=== PATIENT | male | born 1975 | race African-American/Black ===

== ENCOUNTER 2017-02-07 15:56 | Emergency (ER) | payer SELFPAY ==
[~2017-02-07] VITALS: Ht 170.2 cm; Wt 63.5 kg
[~2017-02-07 15:56] MED LIST: PROAIR HFA8.5 GM IH
[2017-02-07 16:31] VITALS: BP 123/79
[2017-02-07] MEDS ORDERED: PROAIR HFA8.5 GM INH (16:33)
[2017-02-07] MEDS ORDERED: PRED20TA PO (16:33)
--- NOTE | 2017-02-07 16:34 | PHYS DOC ---
Past Medical History Past Medical History: Asthma, Other Additional Past Medical Histor: hemorrhoids Past Surgical History: Other Additional Past Surgical Histo: back, hemorrhoids Alcohol Use: Occasionally Drug Use: None Adult General Chief Complaint Chief Complaint: ASTHMA HPI HPI Patient is a 41 year old male presents emergency department stating that he's been having problems with his asthma for the last 3 days. Patient states that he 's been trying to use his albuterol inhaler however it is in 2013. Patient denies any history of smoking. Review of Systems Review of Systems Constitutional: Denies fever or chills [] Eyes: Denies change in visual acuity, redness, or eye pain [] HENT: Denies nasal congestion or sore throat [] Respiratory: Denies cough or complaint of shortness of breath [] Cardiovascular: No additional information not addressed in HPI [] GI: Denies abdominal pain, nausea, vomiting, bloody stools or diarrhea [] : Denies dysuria or hematuria [] Musculoskeletal: Denies back pain or joint pain [] Integument: Denies rash or skin lesions [] Neurologic: Denies headache, focal weakness or sensory changes [] Endocrine: Denies polyuria or polydipsia [] Current Medications Current Medications Current Medications Medications (Trade) Dose Ordered Sig/Melodie Start Time Stop Time Status Last Admin Dose Admin Albuterol Sulfate (Ventolin Neb Soln) 2.5 mg 1X ONCE 02/07/17 17:30 02/07/17 17:31 DC 02/07/17 17:34 2.5 MG Albuterol/ Ipratropium (Duoneb) 3 ml 1X ONCE 02/07/17 17:15 02/07/17 17:16 DC 02/07/17 17:15 3 ML Prednisone (Prednisone) 40 mg 1X ONCE 02/07/17 16:45 02/07/17 16:46 DC 02/07/17 16:37 40 MG Allergies Allergies Allergies Coded Allergies Type Severity Reaction Last Updated Verified No Known Drug Allergies 11/05/15 No Physical Exam Physical Exam Constitutional: Well developed, well nourished, no acute distress, non-toxic appearance. [] HENT: Normocephalic, atraumatic, bilateral external ears normal, oropharynx moist, no oral exudates, nose normal. [] Eyes: PERRLA, EOMI, conjunctiva normal, no discharge. [] Neck: Normal range of motion, no tenderness, supple, no stridor. [] Cardiovascular:Heart rate regular rhythm, no murmur [] Lungs & Thorax: Bilateral breath sounds wheezes noted throughout. Skin: Warm, dry, no erythema, no rash. [] Back: No tenderness Extremities: No tenderness, no cyanosis, no clubbing, ROM intact, no edema. [] Neurologic: Alert and oriented X 3, normal motor function, normal sensory function, no focal deficits noted. [] Psychologic: Affect normal, judgement normal, mood normal. [] Current Patient Data Vital Signs Vital Signs Date Time Temp Pulse Resp B/P (MAP) Pulse Ox O2 Delivery O2 Flow Rate FiO2 02/07/17 17:36 Room Air 02/07/17 16:53 96 02/07/17 16:31 98.3 85 20 98.3 EKG EKG [] Radiology/Procedures Radiology/Procedures [] Course & Med Decision Making Course & Med Decision Making Pertinent Labs and Imaging studies reviewed. (See chart for details) Patient provided with a DuoNeb times 2 here in the emergency department as well as prednisone. He continued to have wheezes noted with Albuterol treatment provided. After the albuterol tx patients breath sounds with minimal wheezes noted. Patient will be sent home with an albuterol inhaler prescription as well as steroids. Patient will be encouraged to use medications as directed. Drink plenty of fluids Tylenol or ibuprofen for pain and discomfort. Follow-up primary care physician in the next 5-7 days. Signs symptoms to return back to emergency room as been provided. [] Dragon Disclaimer Dragon Disclaimer This electronic medical record was generated, in whole or in part, using a voice recognition dictation system. Departure Departure Impression: Primary Impression: Asthma exacerbation Disposition: HOME, SELF-CARE Condition: STABLE Referrals: NO PCP (PCP) Patient Instructions: Asthma, Adult, [id number] Additional Instructions: Medication as prescribed. Drink plenty of fluids. Tylenol or ibuprofen for pain and discomfort. Follow-up to primary care physician next 5-7 days. Return back to emergency prior signs symptoms of become worse. Scripts Albuterol Sulfate (PROAIR HFA INHALER) 8.5 Gm Hfa.aer.ad 1 PUFF INH PRN Q6HRS Y for SHORTNESS OF BREATH, #1 INHALER 0 Refills Prov: PINEDA RENDON APRN 02/07/17 Prednisone (PREDNISONE) 20 Mg Tablet 40 MG PO DAILY for 7 Days, #14 TAB Prov: PINEDA RENDON APRN 02/07/17 PINEDA RENDON APRN Feb 07, 2017 16:34
[2017-02-07] MEDS ORDERED: IPRATRPIUM/ALBUTEROL 0.5/2.5MG 3 ML NEBU. NEB ONE ×2 (16:45→17:15)
[2017-02-07] MEDS ORDERED: predniSONE 20 MG TABLET PO ONE (16:45)
[2017-02-07] MEDS ORDERED: ALBUTEROL SULFATE 2.5 MG/3 ML NEBU. NEB ONE (17:30)
== END 2017-02-07 18:15 | disposition home or self-care (01) ==
LOC: ER 15:56
DX: J45.901 Unspecified asthma with (acute) exacerbation (principal); Z79.899 Other long term (current) drug therapy
CPT/HCPCS: 94250; 94640; 99285; J7512; J7613; J7620

== ENCOUNTER 2017-10-05 15:01 | Emergency (ER) | payer SELFPAY | END 2017-10-05 15:45 | disposition home or self-care (01) | LOC: ER 15:01 | DX: K04.7 Periapical abscess without sinus (principal); R30.0 Dysuria; K02.9 Dental caries, unspecified; J45.909 Unspecified asthma, uncomplicated | CPT/HCPCS: 87491; 87591; 99284 ==

== ENCOUNTER 2017-11-05 16:21 | Inpatient (IN) | payer SELFPAY ==
[2017-11-05] MEDS: IPRATRPIUM/ALBUTEROL 0.5/2.5MG 3 ML NEBU. NEB ×2 (16:59→18:38)
[2017-11-05] MEDS: methylPREDNISolone SOD SUCC PF 125 MG/2 ML VIAL. IV (17:15)
[2017-11-05 18:49] LABS: BASE EXCESS ABG -4 mmol/L (-3-3); HCO3 ABG 20 mmol/L (21-28); PCO2 ABG 36 mmHg (35-46); PH ABG 7.37 (7.35-7.45); PO2 ABG 62 mmHg (75-108); SAT O2 ABG 89 % (92-99)
[2017-11-05 18:51] LABS: FIO2 ABG 21
[2017-11-05 19:36] LABS: BASO # 0.1 x10^3/uL (0.0-0.2); BASO % 1 % (0-3); EOS # 0.1 x10^3/uL (0.0-0.7); EOS % 1 % (0-3); HEMATOCRIT 45.2 % (39.0-53.0); HEMOGLOBIN 15.7 g/dL (13.0-17.5); LYMPH # 0.7 x10^3/uL (1.0-4.8); LYMPH % 7 % (24-48); MEAN CORPUSCULAR HEMOGLOBIN 33 pg (25-35); MEAN CORPUSCULAR HGB CONC 35 g/dL (31-37); MEAN CORPUSCULAR VOLUME 95 fL (79-100); MONO # 0.1 x10^3/uL (0.0-1.1); MONO % 1 % (0-9); NEUT # 8.5 x10^3uL (1.8-7.7); NEUT % 91 % (31-73); PLATELET COUNT 263 x10^3/uL (140-400); RED BLOOD COUNT 4.74 x10^6/uL (4.30-5.70); RED CELL DISTRIBUTION WIDTH 14.1 % (11.5-14.5); WHITE BLOOD COUNT 9.4 x10^3/uL (4.0-11.0)
[2017-11-05 19:37] LABS: ADD MAN DIFF? YES
[2017-11-05 19:48] LABS: ANION GAP 17 (6-14); BLOOD UREA NITROGEN 16 mg/dL (8-26); BUN/CREATININE RATIO 12 (6-20); CARBON DIOXIDE 21 mmol/L (21-32); CHLORIDE 100 mmol/L (98-107); CREATININE 1.3 mg/dL (0.7-1.3); GLUCOSE 61 mg/dL (70-99); POTASSIUM 4.2 mmol/L (3.5-5.1); SODIUM 138 mmol/L (136-145)
[2017-11-05 19:56] LABS: TROPONINI < 0.017 ng/mL (0.000-0.055)
[2017-11-05 19:56] LABS: ALBUMIN 4.3 g/dL (3.4-5.0); ALBUMIN/GLOBULIN RATIO 1.1 (1.0-1.7); ALK PHOS 67 U/L (46-116); ALT (SGPT) 29 U/L (16-63); AST (SGOT) 28 U/L (15-37); TOTAL BILIRUBIN 0.5 mg/dL (0.2-1.0); TOTAL PROTEIN 8.1 g/dL (6.4-8.2)
[2017-11-05 20:02] LABS: CKMB MASS 2.6 ng/mL (0.0-3.6); CREATINE KINASE 267 U/L (39-308)
[2017-11-05] MEDS: AZITHROMYCIN 250 MG TABLET. PO (20:35)
[2017-11-05 20:47] LABS: % ATYL 2 % (0-0); % BANDS 2 % (0-9); % EOS 1 % (0-5); % LYMPHS 7 % (24-48); % SEGS 88 % (35-66); PLT ESTIMATE ADEQUATE (ADEQUATE)
[2017-11-05] MEDS ORDERED: ONDANSETRON PF 4 MG/2 ML VIAL. IV (21:15)
[2017-11-05] MEDS: MORPHINE SULFATE 4 MG/ML DISP.SYRIN. IV (22:18)
[2017-11-05] MEDS ORDERED: NICOTINE 21MG PATCH. TD (23:00)
[2017-11-05] MEDS ORDERED: MORPHINE SULFATE 4 MG/ML DISP.SYRIN. IV (23:00)
[2017-11-06] MEDS: ALBUTEROL SULFATE 2.5 MG/3 ML NEBU. NEB (01:07)
[2017-11-06 03:08] LABS: ADD MAN DIFF? NO
[2017-11-06 04:10] LABS: TROPONINI < 0.017 ng/mL (0.000-0.055)
[2017-11-06 04:11] LABS: TROPONINI < 0.017 ng/mL (0.000-0.055)
[2017-11-06 04:26] LABS: BASO % 0 % (0-3); EOS % 0 % (0-3); HEMATOCRIT 41.7 % (39.0-53.0); HEMOGLOBIN 14.2 g/dL (13.0-17.5); LYMPH # 0.5 x10^3/uL (1.0-4.8); LYMPH % 11 % (24-48); MEAN CORPUSCULAR HEMOGLOBIN 33 pg (25-35); MEAN CORPUSCULAR HGB CONC 34 g/dL (31-37); MEAN CORPUSCULAR VOLUME 97 fL (79-100); MONO % 1 % (0-9); NEUT # 4.3 x10^3uL (1.8-7.7); NEUT % 88 % (31-73); PLATELET COUNT 245 x10^3/uL (140-400); RED BLOOD COUNT 4.32 x10^6/uL (4.30-5.70); RED CELL DISTRIBUTION WIDTH 13.8 % (11.5-14.5); WHITE BLOOD COUNT 4.8 x10^3/uL (4.0-11.0)
[2017-11-06 04:30] LABS: ALBUMIN 3.6 g/dL (3.4-5.0); ALK PHOS 58 U/L (46-116); ALT (SGPT) 29 U/L (16-63); ANION GAP 12 (6-14); AST (SGOT) 23 U/L (15-37); BLOOD UREA NITROGEN 18 mg/dL (8-26); BUN/CREATININE RATIO 13 (6-20); CALCIUM 8.5 mg/dL (8.5-10.1); CARBON DIOXIDE 23 mmol/L (21-32); CHLORIDE 99 mmol/L (98-107); CREATININE 1.4 mg/dL (0.7-1.3); GFR 67.9; GLUCOSE 299 mg/dL (70-99); POTASSIUM 4.3 mmol/L (3.5-5.1); SODIUM 134 mmol/L (136-145); TOTAL BILIRUBIN 0.5 mg/dL (0.2-1.0); TOTAL PROTEIN 7.3 g/dL (6.4-8.2)
[2017-11-06] MEDS: IPRATRPIUM/ALBUTEROL 0.5/2.5MG 3 ML NEBU. NEB ×2 (07:28→11:17)
[2017-11-06] MEDS ORDERED: NON FORMULARY ITEM (Albuterol Sulfate (Proair Hfa Inhaler) 2 PUFF) IH (12:00)
[2017-11-06] MEDS ORDERED: NON FORMULARY ITEM (Albuterol Sulfate (Proair Hfa Inhaler) 1 PUFF) INH (12:00)
[2017-11-06] MEDS ORDERED: ALBUTEROL SULFATE 2.5 MG/3 ML NEBU. NEB (12:15)
== END 2017-11-06 13:30 | disposition home or self-care (01) | DRG 203 ==
LOC: ER 16:21 → 5 SOUTH 21:15
DX: J45.901 Unspecified asthma with (acute) exacerbation (principal); F17.210 Nicotine dependence, cigarettes, uncomplicated; Z82.5 Family history of asthma and other chronic lower respiratory diseases
CPT/HCPCS: 36415; 36600; 71045; 80053; 82553; 82805; 84484; 85007; 85025; 94375; 94640; 94760; 96374; 99285; 99285-25; J2270; J2930; J7613; J7620; Q0144

== ENCOUNTER 2017-12-17 22:53 | Emergency (ER) | payer SELFPAY ==
[2017-12-17 23:48] LABS: ADD MAN DIFF? NO
[2017-12-17 23:49] LABS: BASO # 0.1 x10^3/uL (0.0-0.2); BASO % 1 % (0-3); EOS # 0.6 x10^3/uL (0.0-0.7); EOS % 7 % (0-3); HEMATOCRIT 35.7 % (39.0-53.0); HEMOGLOBIN 12.5 g/dL (13.0-17.5); LYMPH # 1.8 x10^3/uL (1.0-4.8); LYMPH % 23 % (24-48); MEAN CORPUSCULAR HEMOGLOBIN 33 pg (25-35); MEAN CORPUSCULAR HGB CONC 35 g/dL (31-37); MEAN CORPUSCULAR VOLUME 95 fL (79-100); MONO # 0.6 x10^3/uL (0.0-1.1); MONO % 8 % (0-9); NEUT % 61 % (31-73); PLATELET COUNT 297 x10^3/uL (140-400); RED BLOOD COUNT 3.77 x10^6/uL (4.30-5.70); RED CELL DISTRIBUTION WIDTH 13.7 % (11.5-14.5); WHITE BLOOD COUNT 8.1 x10^3/uL (4.0-11.0)
[2017-12-17] MEDS: methylPREDNISolone SOD SUCC PF 125 MG/2 ML VIAL. IV (23:55)
[2017-12-18 00:01] LABS: ANION GAP 10 (6-14); BLOOD UREA NITROGEN 18 mg/dL (8-26); BUN/CREATININE RATIO 16 (6-20); CALCIUM 8.8 mg/dL (8.5-10.1); CARBON DIOXIDE 27 mmol/L (21-32); CHLORIDE 106 mmol/L (98-107); CREATININE 1.1 mg/dL (0.7-1.3); GFR 74.1; GLUCOSE 89 mg/dL (70-99); POTASSIUM 3.5 mmol/L (3.5-5.1); SODIUM 143 mmol/L (136-145)
[2017-12-18] MEDS: IPRATRPIUM/ALBUTEROL 0.5/2.5MG 3 ML NEBU. NEB ×2 (00:02→00:06)
[2017-12-18 00:14] LABS: ALBUMIN 2.8 g/dL (3.4-5.0); ALBUMIN/GLOBULIN RATIO 0.8 (1.0-1.7); ALK PHOS 64 U/L (46-116); ALT (SGPT) 29 U/L (16-63); AST (SGOT) 27 U/L (15-37); TOTAL BILIRUBIN 0.2 mg/dL (0.2-1.0); TOTAL PROTEIN 6.5 g/dL (6.4-8.2)
== END 2017-12-18 01:05 | disposition home or self-care (01) ==
LOC: ER 22:53
DX: J45.901 Unspecified asthma with (acute) exacerbation (principal); J18.9 Pneumonia, unspecified organism
CPT/HCPCS: 36415; 71045; 80053; 85025; 94640; 96365; 96375; J0690; J2930; J7620

== ENCOUNTER 2018-01-10 05:44 | Emergency (ER) | payer SELFPAY ==
[2018-01-10] MEDS: IPRATRPIUM/ALBUTEROL 0.5/2.5MG 3 ML NEBU. NEB ×2 (06:00→06:37)
[2018-01-10] MEDS: predniSONE 10 MG TABLET PO (06:15)
[2018-01-10] MEDS ORDERED: IPRATRPIUM/ALBUTEROL 0.5/2.5MG 3 ML NEBU. NEB (06:45)
== END 2018-01-10 06:53 | disposition home or self-care (01) ==
LOC: ER 05:44
DX: J45.901 Unspecified asthma with (acute) exacerbation (principal); F10.10 Alcohol abuse, uncomplicated
CPT/HCPCS: 94640; 99284-25; J7512; J7620

== ENCOUNTER 2018-11-07 10:19 | Emergency (ER) | payer SELFPAY ==
[~2018-11-07] VITALS: Ht 167.6 cm; Wt 63.5 kg
[~2018-11-07 10:19] MED LIST changes: +ALBU2.5V5 NEB; +ALBU2.5V8 IH; +ALBU2.5V8 INH; +AZIT500T PO; +CEFI200S PO; +DOXY100T PO; +FLUT12AE IH; +PENI500T PO; +PRED-220 PO; +PRED20TA PO; +PRED50TA PO; -PROAIR HFA8.5 GM IH
[2018-11-07 10:47] VITALS: BP 131/80
[2018-11-07] MEDS ORDERED: HYDROcodone/APAP 5/325MG 1 TAB TABLET PO ONE (11:00)
--- NOTE | 2018-11-07 11:29 | RAD ---
Three-view study lumbar spine Clinical indications: Low back pain. No known injury. FINDINGS: The transverse processes are intact. No compression fracture or discitis or lytic process or anterolisthesis is evident. Mild degenerative endplate spurring and disc space narrowing is seen at L4-5. IMPRESSION: Degenerative lumbar spondylosis at L4-5. No acute compression fracture. Electronically signed by: Stan Raines MD (11/07/2018 11:27 AM) [id number]
[2018-11-07 12:04] LABS: BILIRUBIN,URINE NEGATIVE (NEG); CLARITY,URINE CLEAR; COLOR,URINE YELLOW; NITRITE,URINE NEGATIVE (NEG); PH,URINE 5.5; PROTEIN,URINE NEGATIVE (NEG-TRACE); UROBILINOGEN,URINE 0.2 mg/dL (0.2 mg/dL)
--- NOTE | 2018-11-07 12:05 | PHYS DOC ---
Past Medical History Past Medical History: Asthma, Other Additional Past Medical Histor: hemorrhoids (ROBERT LAZARO Nelda POOL) Past Surgical History: Other Additional Past Surgical Histo: back, hemorrhoids (ROBERT LAZARO Nelda POOL) Alcohol Use: Heavy Drug Use: Marijuana (ROBERT LAZARO Nelda POOL) Adult General Chief Complaint Chief Complaint: LOWER BACK PAIN OR INJURY HPI HPI Patient is a 43 year old male who presents with low back pain that started when he woke up this morning. The patient states that he thought that he might have slept funny. He denies spontaneous loss of bowel or bladder, saddle numbness or foot drop. The patient does do a physical job but does not remember having a specific injury. (ROBERT LAZARO Nelda POOL) Review of Systems Review of Systems Constitutional: Denies fever or chills [] Eyes: Denies change in visual acuity, redness, or eye pain [] HENT: Denies nasal congestion or sore throat [] Respiratory: Denies cough or shortness of breath [] Cardiovascular: No additional information not addressed in HPI [] GI: Denies abdominal pain, nausea, vomiting, bloody stools or diarrhea [] : Denies dysuria or hematuria [] Musculoskeletal: See history of present illness Integument: Denies rash or skin lesions [] Neurologic: Denies headache, focal weakness or sensory changes [] Endocrine: Denies polyuria or polydipsia [] All other systems were reviewed and found to be within normal limits, except as documented in this note. (LAINE LAZAROJAYASHREE Lutz APRN) Current Medications Current Medications Current Medications Medications (Trade) Dose Ordered Sig/Melodie Start Time Stop Time Status Last Admin Dose Admin Acetaminophen/ Hydrocodone Bitart (Lortab 5/325) 1 tab 1X ONCE 11/07/18 11:00 11/07/18 11:03 DC 11/07/18 11:14 1 TAB (JUAN R HANSEN MD) Allergies Allergies Allergies Coded Allergies Type Severity Reaction Last Updated Verified No Known Drug Allergies 11/05/15 No (JUAN R HANSEN MD) Physical Exam Physical Exam Constitutional: Well developed, well nourished, no acute distress, non-toxic appearance. [] Neck: Normal range of motion, no tenderness, supple, no stridor. [] Cardiovascular:Heart rate regular rhythm, no murmur [] Lungs & Thorax: Bilateral breath sounds clear to auscultation [] Abdomen: Bowel sounds normal, soft, no tenderness, no masses, no pulsatile masses. [] Skin: Warm, dry, no erythema, no rash. [] Back: tenderness to lumbar spine with no gross deformity or step-offs noted, no CVA tenderness. [] Extremities: No tenderness, no cyanosis, no clubbing, ROM intact, no edema. [] Neurologic: Alert and oriented X 3, normal motor function, normal sensory function, no focal deficits noted. [] Psychologic: Affect normal, judgement normal, mood normal. [] (ROBERT LAZARO APRN) Current Patient Data Vital Signs Vital Signs Date Time Temp Pulse Resp B/P (MAP) Pulse Ox O2 Delivery O2 Flow Rate FiO2 11/07/18 10:47 98.2 83 18 131/80 (97) 99 Room Air 98.2 (JUAN R HANSEN MD) Lab Values Laboratory Tests Test 11/07/18 11:55 Urine Collection Type Unknown Urine Color Yellow Urine Clarity Clear Urine pH 5.5 Urine Specific [place] <=1.005 Urine Protein Negative mg/dL (NEG-TRACE) Urine Glucose (UA) Negative mg/dL (NEG) Urine Ketones (Stick) Negative mg/dL (NEG) Urine Blood Negative (NEG) Urine Nitrite Negative (NEG) Urine Bilirubin Negative (NEG) Urine Urobilinogen Dipstick 0.2 mg/dL (0.2 mg/dL) Urine Leukocyte Esterase Negative (NEG) Urine RBC 0 /HPF (0-2) Urine WBC 0 /HPF (0-4) Urine Squamous Epithelial Cells Few /LPF Urine Bacteria 0 /HPF (0-FEW) (JUAN R HANSEN MD) Lab Values Laboratory Tests Test 11/07/18 11:55 Urine Collection Type Unknown Urine Color Yellow Urine Clarity Clear Urine pH 5.5 Urine Specific [place] <=1.005 Urine Protein Negative mg/dL (NEG-TRACE) Urine Glucose (UA) Negative mg/dL (NEG) Urine Ketones (Stick) Negative mg/dL (NEG) Urine Blood Negative (NEG) Urine Nitrite Negative (NEG) Urine Bilirubin Negative (NEG) Urine Urobilinogen Dipstick 0.2 mg/dL (0.2 mg/dL) Urine Leukocyte Esterase Negative (NEG) Urine RBC 0 /HPF (0-2) Urine WBC 0 /HPF (0-4) Urine Squamous Epithelial Cells Few /LPF Urine Bacteria 0 /HPF (0-FEW) (ROBERT LAZARO APRN) EKG EKG [] (ROBERT LAZARO APRN) Radiology/Procedures Radiology/Procedures []PATIENT: DARLEEN SILVA LACCOUNT: [id number]#: [id number] : 1975 LOCATION: ER AGE: 43 SEX: M EXAM STATUS: REG ER ORD. PHYSICIAN: ROBERT LAZARO APRN REASON: increasing back pain PROCEDURE: LUMBAR SPINE 2-3V Three-view study lumbar spine Clinical indications: Low back pain. No known injury. FINDINGS: The transverse processes are intact. No compression fracture or discitis or lytic process or anterolisthesis is evident. Mild degenerative endplate spurring and disc space narrowing is seen at L4-5. IMPRESSION: Degenerative lumbar spondylosis at L4-5. No acute compression fracture. Electronically signed by: Cristhian Raines MD (11/07/2018 11:27 AM) [id number] DICTATED and SIGNED BY: CRISTHIAN RAINES MD DATE: 11/07/18 1127 (ROBERT LAZARO APRN) Course & Med Decision Making Course & Med Decision Making Pertinent Labs and Imaging studies reviewed. (See chart for details) []The patient is negative for a urinary tract infection. (ROBERT LAZARO APRN) Course & Med Decision Making Staff Physician Addendum: I was working in the ER during the course of this patient's visit. I was available for consultation as needed, but I was not directly involved in the c are of this patient. (JUAN R HANSEN MD) Dragon Disclaimer Dragon Disclaimer This electronic medical record was generated, in whole or in part, using a voice recognition dictation system. (ROBERT LAZARO APRN) Departure Departure Impression: Primary Impression: Degenerative spondylolisthesis Disposition: HOME, SELF-CARE Condition: STABLE Referrals: NO PCP (PCP) Patient Instructions: Spondylolysis with [facility] Additional Instructions: Take the medication as directed. Follow-up with your primary care provider in one week for recheck if not improving. You may be referred to neurosurgery if your pain does not improve. Scripts Meloxicam (MOBIC) 7.5 Mg Tablet 1 TAB PO DAILY for back pain, #30 TAB 1 Refill Prov: ROBERT LAZARO APRN 11/07/18 ROBERT LAZARO APRN Nov 07, 2018 12:05 JUAN R HANSEN MD November 09, 2018 00:06
[2018-11-07 12:11] LABS: BACTERIA,URINE 0 /HPF (0-FEW); RBC,URINE 0 /HPF (0-2); SQUAMOUS EPITHELIAL CELL,UR FEW /LPF; WBC,URINE 0 /HPF (0-4)
[2018-11-07] MEDS ORDERED: MELO7.5T5 PO (12:23)
== END 2018-11-07 12:43 | disposition home or self-care (01) ==
LOC: ER 10:19
DX: M43.16 Spondylolisthesis, lumbar region (principal); J45.909 Unspecified asthma, uncomplicated; F10.20 Alcohol dependence, uncomplicated; Y90.9 Presence of alcohol in blood, level not specified
CPT/HCPCS: 72100; 81001; 99285

== ENCOUNTER 2018-12-22 05:04 | Emergency (ER) | payer OTHER ==
[~2018-12-22] VITALS: Ht 170.2 cm; Wt 63.5 kg
[~2018-12-22 05:04] MED LIST changes: +MELO7.5T5 PO
[2018-12-22 05:15] VITALS: BP 140/91
[2018-12-22] MEDS ORDERED: PRED50TA PO (05:21)
[2018-12-22] MEDS ORDERED: ALBU2.5V8 INH (05:21)
[2018-12-22] MEDS ORDERED: IPRATRPIUM/ALBUTEROL 0.5/2.5MG 3 ML NEBU. NEB ONE (05:30)
[2018-12-22] MEDS ORDERED: predniSONE 10 MG TABLET PO ONE (05:30)
--- NOTE | 2018-12-22 05:52 | PHYS DOC ---
Past Medical History Past Medical History: Asthma, Other Additional Past Medical Histor: hemorrhoids Past Surgical History: Other Additional Past Surgical Histo: back, hemorrhoids Alcohol Use: Heavy Drug Use: Marijuana Adult General Chief Complaint Chief Complaint: ASTHMA HPI HPI Patient is a 43 year old male presenting with chief complaint of shortness of breath. History of asthma he feels like his asthma is kicking in he ran out of his albuterol inhaler he thinks the weather leading to his symptoms he has not had a fever. He has a dry cough he says that he just wanted to come in sooner so that he wouldn't end up intubated like he was a few years back. Review of Systems Review of Systems Constitutional: Denies fever or chills [] Eyes: Denies change in visual acuity, redness, or eye pain [] Cardiovascular: No additional information not addressed in HPI [] GI: Denies abdominal pain, nausea, vomiting, bloody stools or diarrhea [] : Denies dysuria or hematuria [] Musculoskeletal: Denies back pain or joint pain [] Integument: Denies rash or skin lesions [] Neurologic: Denies headache, focal weakness or sensory changes [] Endocrine: Denies polyuria or polydipsia [] All other systems were reviewed and found to be within normal limits, except as documented in this note. Current Medications Current Medications Current Medications Medications (Trade) Dose Ordered Sig/Melodie Start Time Stop Time Status Last Admin Dose Admin Albuterol/ Ipratropium (Duoneb) 3 ml 1X ONCE 12/22/18 05:30 12/22/18 05:31 DC Prednisone (Prednisone) 50 mg 1X ONCE 12/22/18 05:30 12/22/18 05:31 DC 12/22/18 05:33 50 MG Allergies Allergies Allergies Coded Allergies Type Severity Reaction Last Updated Verified No Known Drug Allergies 11/05/15 No Physical Exam Physical Exam Constitutional: Well developed, well nourished, no acute distress, non-toxic appearance. [] HENT: Normocephalic, atraumatic, bilateral external ears normal, oropharynx moist, no oral exudates, nose normal. [] Eyes: PERRLA, EOMI, conjunctiva normal, no discharge. [] Neck: Normal range of motion, no tenderness, supple, no stridor. [] Cardiovascular:Heart rate regular rhythm, no murmur [] Lungs & Thorax: Faint wheezing bilaterally speaking full sentences without difficulty Abdomen: Bowel sounds normal, soft, no tenderness, no masses, no pulsatile masses. [] Skin: Warm, dry, no erythema, no rash. [] Back: No tenderness, no CVA tenderness. [] Extremities: No tenderness, no cyanosis, no clubbing, ROM intact, no edema. [] Neurologic: Alert and oriented X 3, normal motor function, normal sensory function, no focal deficits noted. [] Psychologic: Affect normal, judgement normal, mood normal. [] Current Patient Data Vital Signs Vital Signs Date Time Temp Pulse Resp B/P (MAP) Pulse Ox O2 Delivery O2 Flow Rate FiO2 12/22/18 05:15 98.0 78 22 140/91 (107) 95 Room Air 98.0 EKG EKG [] Radiology/Procedures Radiology/Procedures [] Impressions: Chest x-ray interpreted by me was negative acute Course & Med Decision Making Course & Med Decision Making Pertinent Labs and Imaging studies reviewed. (See chart for details) []This is a 43-year-old male with known asthma who has had severe asthma in the past status post intubation he tells me present with mild asthma exacerbation sat was 95 on room air patient had minimal wheezing we gave DuoNeb we did x-ray looked okay we will send home with albuterol and prednisone. Dragon Disclaimer Dragsal Disclaimer This electronic medical record was generated, in whole or in part, using a voice recognition dictation system. Departure Departure Impression: Primary Impression: Asthma exacerbation Disposition: HOME, SELF-CARE Condition: STABLE Patient Instructions: Asthma, Acute Bronchospasm Scripts Albuterol Sulfate (PROAIR HFA INHALER) 8.5 Gm Hfa.aer.ad 1 PUFF INH PRN Q6HRS PRN for SHORTNESS OF BREATH, #1 INHALER 0 Refills Prov: JUAN R HANSEN MD 12/22/18 Prednisone (PREDNISONE) 50 Mg Tablet 1 TAB PO DAILY, #5 TAB Prov: JUAN R HANSEN MD 12/22/18 JUAN R HANSEN MD Dec 22, 2018 05:52
--- NOTE | 2018-12-22 06:00 | RAD ---
Chest AP portable at 0501: Reason for examination: Cough. Comparison is made to previous study dated 11/05/2017. The heart size is normal. Mediastinum is unremarkable. Lung aponte appear to be hyperaerated but show no infiltrates or pleural effusions.. No acute bony abnormalities are seen. Impression: Lung aponte appear hyperaerated but show no infiltrates or pleural effusions. Electronically signed by: Mellisa Hines MD (12/22/2018 5:57 AM) [id number]
== END 2018-12-22 06:20 | disposition home or self-care (01) ==
LOC: ER 05:04
DX: J45.901 Unspecified asthma with (acute) exacerbation (principal); F10.20 Alcohol dependence, uncomplicated; Y90.9 Presence of alcohol in blood, level not specified
CPT/HCPCS: 71045; 94640; 99283; J7512; J7620

== ENCOUNTER 2021-01-16 13:54 | Emergency (ER) | payer SELFPAY ==
[~2021-01-16] VITALS: Ht 170.2 cm; Wt 59.0 kg
--- NOTE | 2021-01-16 14:05 | PHYS DOC ---
Past Medical History Past Medical History: Asthma, Other Additional Past Medical Histor: hemorrhoids Past Surgical History: Other Additional Past Surgical Histo: back, hemorrhoids Smoking Status: Current Every Day Smoker Alcohol Use: Heavy Drug Use: Marijuana General Adult EDM: Chief Complaint: HAND PROBLEM HPI: HPI: Patient is a 45 year old [f__sex] who presents with [] Review of Systems: Review of Systems: Fourteen body systems of review of systems have been reviewed. See HPI for p ertinent positives and negative responses, other beltran all other systems are negative, non-pertinent or non-contributory Heart Score: Risk Factors: Risk Factors: DM, Current or recent (<one month) smoker, HTN, HLP, family history of CAD, obesity. Risk Scores: Score 0 - 3: 2.5% MACE over next 6 weeks - Discharge Home Score 4 - 6: 20.3% MACE over next 6 weeks - Admit for Clinical Observation Score 7 - 10: 72.7% MACE over next 6 weeks - Early Invasive Strategies Allergies: Allergies: Allergies Coded Allergies Type Severity Reaction Last Updated Verified No Known Drug Allergies 11/05/15 No Physical Exam: PE: Constitutional: Well developed, well nourished, no acute distress, non-toxic appearance. HENT: Normocephalic, atraumatic, bilateral external ears normal, oropharynx moist, no oral exudates, nose normal. Eyes: PERRLA, EOMI, conjunctiva normal, no discharge. Neck: Normal range of motion, no tenderness, supple, no stridor. Cardiovascular: Heart rate regular, sinus rhythm, no murmurs rubs or gallops Lungs & Thorax: Bilateral breath sounds clear to auscultation Abdomen: Bowel sounds normal, soft, no tenderness, no masses, no pulsatile masses. Nonsurgical abdomen, no peritoneal signs Skin: Warm, dry, no erythema, no rash. Back: No tenderness, no CVA tenderness. Extremities: No tenderness, no cyanosis, no clubbing, ROM intact, no edema. Neurologic: Alert and oriented X 3, grossly normal motor & sensory function, no focal deficits noted. Psychologic: Affect normal, judgement normal, mood normal. EKG: EKG: [] Radiology/Procedures: Radiology/Procedures: [] Course & Med Decision Making: Course & Med Decision Making Pertinent Labs and Imaging studies reviewed. (See chart for details) [] Dragon Disclaimer: Dragon Disclaimer: This electronic medical record was generated, in whole or in part, using a voice recognition dictation system. Departure Departure Referrals: NO PCP (PCP) MITUL CHATTERJEE DO Jan 16, 2021 14:05
[2021-01-16 14:31] VITALS: BP 122/77
--- NOTE | 2021-01-16 14:46 | PHYS DOC ---
Past Medical History Past Medical History: Asthma, Other Additional Past Medical Histor: hemorrhoids (AURA HAN FABRIC DESIGNER) Past Surgical History: No Surgical History Additional Past Surgical Histo: back, hemorrhoids (AURA HAN FABRIC DESIGNER) Smoking Status: Current Every Day Smoker Alcohol Use: Heavy Drug Use: Marijuana (AURA HAN FABRIC DESIGNER) General Adult EDM: Chief Complaint: HAND PROBLEM HPI: HPI: Patient is a 45 year old female who presents to the ED today to be evaluated for left hand fracture that he sustained 5 weeks ago. Patient states he was seen at [facility], he states he was told because he does not live in [place] he needs [place] Medicaid to get his hand fixed. He presents today requesting that hand to be surgically fixed right now. (AURA HAN APRN) Review of Systems: Review of Systems: Constitutional: Denies fever or chills. [] Musculoskeletal: Reports left hand injury Integument: Denies rash. [] Neurologic: Denies headache, focal weakness or sensory changes. [] Psychiatric: Denies depression or anxiety. [] (AURA HAN FABRIC DESIGNER) Heart Score: C/O Chest Pain: N/A Risk Factors: Risk Factors: DM, Current or recent (<one month) smoker, HTN, HLP, family history of CAD, obesity. Risk Scores: Score 0 - 3: 2.5% MACE over next 6 weeks - Discharge Home Score 4 - 6: 20.3% MACE over next 6 weeks - Admit for Clinical Observation Score 7 - 10: 72.7% MACE over next 6 weeks - Early Invasive Strategies (AURA HAN FABRIC DESIGNER) Allergies: Allergies: Allergies Coded Allergies Type Severity Reaction Last Updated Verified No Known Drug Allergies 11/05/15 No (AURA HAN FABRIC DESIGNER) Physical Exam: PE: Constitutional: Well developed, well nourished, no acute distress, non-toxic appearance. [] Skin: Warm, dry, no erythema, no rash. [] Back: No tenderness, no CVA tenderness. [] Extremities: Left hand is in a thumb spica type splint. There is edema to the left fingers. Range of motion is intact. Cap refill less than 2 seconds. Adequate radial, medial, ulnar sensation to the left fingers. Neurologic: Alert and oriented X 3, normal motor function, normal sensory function, no focal deficits noted. [] Psychologic: Affect normal, judgement normal, mood normal. [] (AURA HAN FABRIC DESIGNER) Current Patient Data: Vital Signs: Vital Signs Date Time Temp Pulse Resp B/P (MAP) Pulse Ox O2 Delivery O2 Flow Rate FiO2 01/16/21 14:31 98.2 92 16 122/77 95 Room Air 98.2 (AURA HAN FABRIC DESIGNER) EKG: EKG: [] (AURA HAN FABRIC DESIGNER) Radiology/Procedures: Radiology/Procedures: [] (AURA HAN FABRIC DESIGNER) Course & Med Decision Making: Course & Med Decision Making Pertinent Labs and Imaging studies reviewed. (See chart for details) This is a 45-year-old male patient who presents to the ED today requesting his hand to be fixed. Patient states he had had fracture 5 weeks ago. Informed patient this is an injury that occurred 5 weeks ago and currently is not an emergency, it needs to be followed up as an outpatient with orthopedic doctor which we provided. He became upset stating that his hand should fix his hand right now. At some point he stated there is a reason why all this surgeons get shot. Informed patient that is a threat and we can call security and police over threats like that. He requested to be discharged and he left. (AURA HAN FABRIC DESIGNER) Course & Med Decision Making I was attending physician in ER at time of patient visit. NETWORK SUPPORT MANAGER saw, worked up, and created treatment plan independently despite me being present and available in the department. Patient left ER prior to me reviewing case with NETWORK SUPPORT MANAGER. Electronically signed, Mitul Chatterjee DO (MITUL CHATTERJEE DO) Hari Disclaimer: Hari Disclaimer: This electronic medical record was generated, in whole or in part, using a voice recognition dictation system. (AURA HAN FABRIC DESIGNER) Departure Departure Impression: Primary Impression: Hand fracture, left Qualified Codes: S62.92XD - Unspecified fracture of left wrist and hand, subsequent encounter for fracture with routine healing Disposition: HOME / SELF CARE / HOMELESS Condition: STABLE Referrals: NO PCP (PCP) ZHEN JAMISON DO Please call his office today and set up a follow-up appointment Patient Instructions: Hand Fracture Additional Instructions: Please call the provided orthopedic doctor today and set up a follow-up appointment AURA HAN APRN Jan 16, 2021 14:46 MITUL CHATTERJEE DO Feb 09, 2021 11:06
== END 2021-01-16 15:09 | disposition home or self-care (01) ==
LOC: ER 13:54
DX: S62.92XD Unspecified fracture of left hand, subsequent encounter for fracture with routine healing (principal); J45.909 Unspecified asthma, uncomplicated; F17.200 Nicotine dependence, unspecified, uncomplicated; X58.XXXD Exposure to other specified factors, subsequent encounter
CPT/HCPCS: 99281

== ENCOUNTER 2021-03-13 16:44 | Emergency (ER) | payer SELFPAY | END 2021-03-13 19:04 | disposition left against medical advice (07) | LOC: ER 16:44 | DX: J45.909 Unspecified asthma, uncomplicated (principal); Z53.21 Procedure and treatment not carried out due to patient leaving prior to being seen by health care provider ==

== ENCOUNTER 2021-03-15 15:03 | Emergency (ER) | payer SELFPAY ==
[~2021-03-15] VITALS: Ht 170.2 cm; Wt 63.0 kg
[2021-03-15] MEDS ORDERED: IPRATRPIUM/ALBUTEROL 0.5/2.5MG 3 ML NEBU. NEB ONE (15:30)
[2021-03-15] MEDS ORDERED: predniSONE 10 MG TABLET PO ONE (15:30)
[2021-03-15] MEDS ORDERED: ALBU1.25 NEB (16:05)
[2021-03-15] MEDS ORDERED: ALBU2.5V8 IH (16:05)
[2021-03-15] MEDS ORDERED: PRED50TA PO (16:05)
--- NOTE | 2021-03-15 16:06 | PHYS DOC ---
Past Medical History Past Medical History: Asthma, Other Additional Past Medical Histor: hemorrhoids Past Surgical History: No Surgical History Additional Past Surgical Histo: back, hemorrhoids Smoking Status: Current Some Day Smoker Alcohol Use: Occasionally Drug Use: Marijuana General Adult EDM: Chief Complaint: ASTHMA HPI: HPI: Patient is a 45 year old male with history of asthma presenting today complaining of shortness of breath and wheezing, symptoms for 4 to 5 days. Patient states he ran out of his inhaler and also ran out of his nebulizer treatments. Denies any fever. States he received Covid vaccine a week and a half ago. Denies any fever. Review of Systems: Review of Systems: Constitutional: Denies fever or chills. [] Eyes: Denies change in visual acuity. [] HENT: Denies nasal congestion or sore throat. [] Respiratory: Reports shortness of breath and wheezing, denies cough Cardiovascular: Denies chest pain or edema. [] GI: Denies abdominal pain, nausea, vomiting, bloody stools or diarrhea. [] : Denies dysuria. [] Musculoskeletal: Denies back pain or joint pain. [] Integument: Denies rash. [] Neurologic: Denies headache, focal weakness or sensory changes. [] ] Psychiatric: Denies depression or anxiety. [] Heart Score: C/O Chest Pain: N/A Risk Factors: Risk Factors: DM, Current or recent (<one month) smoker, HTN, HLP, family history of CAD, obesity. Risk Scores: Score 0 - 3: 2.5% MACE over next 6 weeks - Discharge Home Score 4 - 6: 20.3% MACE over next 6 weeks - Admit for Clinical Observation Score 7 - 10: 72.7% MACE over next 6 weeks - Early Invasive Strategies Current Medications: Current Medications Medications (Trade) Dose Ordered Sig/Melodie Start Time Stop Time Status Last Admin Dose Admin Albuterol/ Ipratropium (Duoneb) 3 ml 1X ONCE 03/15/21 15:30 03/15/21 15:31 DC 03/15/21 15:27 3 ML Prednisone (Prednisone) 50 mg 1X ONCE 03/15/21 15:30 03/15/21 15:31 DC Allergies: Allergies: Allergies Coded Allergies Type Severity Reaction Last Updated Verified No Known Drug Allergies 11/05/15 No Physical Exam: PE: Constitutional: Well developed, well nourished, no acute distress, non-toxic appearance. [] HENT: Normocephalic, atraumatic, bilateral external ears normal, oropharynx moist, no oral exudates, nose normal. [] Eyes: PERRLA, EOMI, conjunctiva normal, no discharge. [] Neck: Normal range of motion, no tenderness, supple, no stridor. [] Cardiovascular:Heart rate regular rhythm, no murmur [] Lungs & Thorax: Wheezing throughout the lung bases. Abdomen: Bowel sounds normal, soft, no tenderness, no masses, no pulsatile masses. [] Skin: Warm, dry, no erythema, no rash. [] Back: No tenderness, no CVA tenderness. [] Extremities: No tenderness, no cyanosis, no clubbing, ROM intact, no edema. [] Neurologic: Alert and oriented X 3, normal motor function, normal sensory fun ction, no focal deficits noted. [] Psychologic: Affect normal, judgement normal, mood normal. [] Current Patient Data: Vital Signs: Vital Signs Date Time Temp Pulse Resp B/P (MAP) Pulse Ox O2 Delivery O2 Flow Rate FiO2 03/15/21 15:27 Room Air 03/15/21 15:15 99.3 75 16 145/114 (107) 97 99.3 EKG: EKG: [] Radiology/Procedures: Radiology/Procedures: [] Course & Med Decision Making: Course & Med Decision Making Pertinent Labs and Imaging studies reviewed. (See chart for details) This a 45-year-old male patient presenting today for asthma exacerbation. Was given a DuoNeb treatment and prednisone in the ED. Lungs cleared up and negative. O2 sats have been 97% and above on room air. Discharged on albuterol, prednisone. Follow-up with PCP. Provided return precautions. Dragon Disclaimer: Hari Disclaimer: This electronic medical record was generated, in whole or in part, using a voice recognition dictation system. Departure Departure Impression: Primary Impression: Asthma exacerbation Qualified Codes: J45.21 - Mild intermittent asthma with (acute) exacerbation Disposition: HOME / SELF CARE / HOMELESS Condition: STABLE Referrals: NO PCP (PCP) Follow-up with your doctor in 1 to 2 weeks Patient Instructions: Asthma, Adult, [id number] Additional Instructions: You were seen for asthma exacerbation. Please take the prescribed medications as ordered. Follow-up with your doctor in 1 to 2 weeks. Come back to the ED at any point symptoms worsen Scripts Prednisone (PREDNISONE) 50 Mg Tablet 1 TAB PO DAILY, #5 TAB Prov: AURA HAN APRN 03/15/21 Albuterol Sulfate (ALBUTEROL SULFATE NEB SOLN) 1.25 Mg/3 Ml Vial.neb 1 VIAL NEB Q6HRS, #150 ML Prov: AURA HAN APRN 03/15/21 Albuterol Sulfate (Proair Hfa) 8.5 Gm Hfa.aer.ad 2 PUFF IH PRN Q4-6HRS PRN for wheezing for 21 Days, #1 INHALER 0 Refills Prov: AURA HAN APRN 03/15/21 AURA HAN APRN Mar 15, 2021 16:06
[2021-03-15 16:07] VITALS: BP 156/104
== END 2021-03-15 16:22 | disposition home or self-care (01) ==
LOC: ER 15:03
DX: J45.21 Mild intermittent asthma with (acute) exacerbation (principal); F17.200 Nicotine dependence, unspecified, uncomplicated
CPT/HCPCS: 94640; 99283; J7512

== ENCOUNTER 2021-12-02 16:43 | Emergency (ER) | payer SELFPAY ==
[~2021-12-02] VITALS: Ht 170.2 cm; Wt 61.4 kg
[~2021-12-02 16:43] MED LIST changes: +ALBU1.25 NEB
[2021-12-02] MEDS ORDERED: IPRATRPIUM/ALBUTEROL 0.5/2.5MG 3 ML NEBU. NEB ONE (17:15)
[2021-12-02] MEDS ORDERED: predniSONE 20 MG TABLET PO ONE (17:15)
[2021-12-02 17:42] VITALS: BP 138/85
[2021-12-02] MEDS ORDERED: NYST100054 PO (17:43)
[2021-12-02] MEDS ORDERED: PRED50TA PO (17:43)
[2021-12-02] MEDS ORDERED: ALBU2.5V8 IH (17:43)
--- NOTE | 2021-12-02 17:43 | PHYS DOC ---
Past Medical History Past Medical History: Asthma, Other Additional Past Medical Histor: hemorrhoids Past Surgical History: No Surgical History Additional Past Surgical Histo: back, hemorrhoids Smoking Status: Current Every Day Smoker Additional Information: cigars Alcohol Use: None Drug Use: Marijuana General Adult EDM: Chief Complaint: ASTHMA HPI: HPI: Patient is a 46 year old male with history of asthma presenting to the ED today complaining of shortness of breath due to his asthma, symptoms began 3 days ago. Patient reports minimal relief from using his inhaler. Denies any fever. Patient is also complaining of thrush on his tongue. He states he does not rinse his mouth after using his inhaler Review of Systems: Review of Systems: Constitutional: Denies fever or chills. [] Eyes: Denies change in visual acuity. [] HENT: Reports thrush on his tongue. Denies nasal congestion or sore throat. [] Respiratory: Reports shortness of breath Cardiovascular: Denies chest pain or edema. [] GI: Denies abdominal pain, nausea, vomiting, bloody stools or diarrhea. [] : Denies dysuria. [] Musculoskeletal: Denies back pain or joint pain. [] Integument: Denies rash. [] Neurologic: Denies headache, focal weakness or sensory changes. [] Psychiatric: Denies depression or anxiety. [] Heart Score: C/O Chest Pain: N/A Risk Factors: Risk Factors: DM, Current or recent (<one month) smoker, HTN, HLP, family history of CAD, obesity. Risk Scores: Score 0 - 3: 2.5% MACE over next 6 weeks - Discharge Home Score 4 - 6: 20.3% MACE over next 6 weeks - Admit for Clinical Observation Score 7 - 10: 72.7% MACE over next 6 weeks - Early Invasive Strategies Current Medications: Current Medications Medications (Trade) Dose Ordered Sig/Melodie Start Time Stop Time Status Last Admin Dose Admin Albuterol/ Ipratropium (Duoneb) 3 ml 1X ONCE 12/02/21 17:15 12/02/21 17:16 DC 12/02/21 17:11 3 ML Prednisone (Prednisone) 60 mg 1X ONCE 12/02/21 17:15 12/02/21 17:16 DC 12/02/21 17:22 60 MG Allergies: Allergies: Allergies Coded Allergies Type Severity Reaction Last Updated Verified No Known Drug Allergies 11/05/15 No Physical Exam: PE: Constitutional: Well developed, well nourished, no acute distress, non-toxic appearance. [] HENT: Normocephalic, atraumatic, bilateral external ears normal, oropharynx moist, no oral exudates, nose normal. thrush on the tongue Eyes: PERRLA, EOMI, conjunctiva normal, no discharge. [] Neck: Normal range of motion, no tenderness, supple, no stridor. [] Cardiovascular:Heart rate regular rhythm, no murmur [] Lungs & Thorax: tight lungs Abdomen: Bowel sounds normal, soft, no tenderness, no masses, no pulsatile masses. [] Skin: Warm, dry, no erythema, no rash. [] Back: No tenderness, no CVA tenderness. [] Extremities: No tenderness, no cyanosis, no clubbing, ROM intact, no edema. [] Neurologic: Alert and oriented X 3, normal motor function, normal sensory function, no focal deficits noted. [] Psychologic: Affect normal, judgement normal, mood normal. [] Current Patient Data: Vital Signs: Vital Signs Date Time Temp Pulse Resp B/P (MAP) Pulse Ox O2 Delivery O2 Flow Rate FiO2 12/02/21 17:12 95 Room Air 12/02/21 17:12 98.0 85 20 148/91 (110) 98.0 EKG: EKG: [] Radiology/Procedures: Radiology/Procedures: [] Course & Med Decision Making: Course & Med Decision Making Pertinent Labs and Imaging studies reviewed. (See chart for details) This is a 36-year-old male patient presenting to the ED today complaining of shortness of breath due to his asthma. Chest was tight on arrival to the ED. He was given a DuoNeb treatment and prednisone, he is feeling better. Discharged with short course of prednisone and albuterol inhaler. He was also complaining of thrush on his tongue. Discharged with nystatin. Emphasized to this patient the importance of rinsing his tongue after using his inhaler Dragon Disclaimer: Hari Disclaimer: This electronic medical record was generated, in whole or in part, using a voice recognition dictation system. Departure Departure Impression: Primary Impression: Asthma exacerbation Qualified Codes: J45.21 - Mild intermittent asthma with (acute) exacerbation Additional Impression: Thrush, oral Disposition: 01 HOME / SELF CARE / HOMELESS Condition: STABLE Referrals: NO PCP (PCP) follow up with your doctor in one week Patient Instructions: Asthma, Adult, Thrush, Adult Additional Instructions: You were evaluated in the emergency room for asthma exacerbation and thrush. Please rinse your mouth after using inhaler. Take the prescribed medications as ordered. Follow-up with your doctor in a week Scripts Nystatin (NYSTATIN) 100,000 Unit/1 Ml Oral.susp 5 ML PO QID, #200 ML Prov: AURA HAN APRN 12/02/21 Albuterol Sulfate (Proair Hfa) 8.5 Gm Hfa.aer.ad 2 PUFF IH PRN Q4-6HRS PRN for wheezing for 21 Days, #1 INHALER 0 Refills Prov: AURA HAN APRN 12/02/21 Prednisone (PREDNISONE) 50 Mg Tablet 1 TAB PO DAILY, #5 TAB Prov: AURA HAN APRN 12/02/21 AURA HAN APRN December 02, 2021 17:43
== END 2021-12-02 17:56 | disposition home or self-care (01) ==
LOC: ER 16:43
DX: J45.21 Mild intermittent asthma with (acute) exacerbation (principal); F17.200 Nicotine dependence, unspecified, uncomplicated
CPT/HCPCS: 94640; 99283; J7512